=== PATIENT | female | born 1975 | race Hispanic/Latino ===

== ENCOUNTER 2016-10-18 15:38 | Emergency (ER) | payer BC ==
[~2016-10-18] VITALS: Ht 165.1 cm; Wt 50.3 kg
[~2016-10-18 15:38] MED LIST: AMBIEN10 MG PO; ENDOCET 5-3251 EACH PO; MOTRIN800 MG PO; Mylicon,Mylanta Gas, PO; NORMODYNE,TRAN200 MG PO; Procardia XL,Adalat PO
[2016-10-18 16:10] LABS: HEMATOCRIT 33.6 % (36.0-46.0); MCH 31.7 PG (29.0-34.0); MCHC 33.6 G/DL (30.0-36.0); MCV 94.1 FL (83-99); MEAN PLAT.VOLUME 10.2 uM^3 (9.5-12.4); PLATELET COUNT 303 K/uL (156-360); RBC DIS.WIDTH-CV 11.8 % (11.8-14.6); RBC DIS.WIDTH-SD 39.2 % (39-53); RED BLOOD COUNT 3.57 M/uL (3.80-5.20); WHITE BLOOD COUNT 5.6 K/uL (4.1-10.2)
[2016-10-18] MEDS ORDERED: LABETALOL HCL200 MG PO (16:24)
[2016-10-18 16:31] LABS: TROP-I INTERPRETATION NEGATIVE; TROPONIN-I < 0.01 ng/mL (0.0-0.30)
[2016-10-18 16:47] LABS: CHLORIDE 107 mEq/L (99-109); POTASSIUM 4.2 mEq/L (3.7-5.4); SODIUM 143 mEq/L (136-147)
[2016-10-18 16:48] LABS: GLUCOSE 89 mg/dL (70-99)
[2016-10-18 16:52] LABS: ANION GAP 9 MEQ/L (2-14); GFR ESTIMATE (CALCULATED) > 59 mL/min/
[2016-10-18 16:53] LABS: UREA NITROGEN (BUN) 19 mg/dL (9-23)
[2016-10-18 17:08] LABS: QUANTITATIVE HCG < 4.0 MIU/ML
[2016-10-18 18:42] LABS: TROP-I INTERPRETATION NEGATIVE; TROPONIN-I < 0.01 ng/mL (0.0-0.30)
[2016-10-18] MEDS ORDERED: NAPROXEN500 MG PO (19:14)
[2016-10-18 19:55] VITALS: BP 113/71
== END 2016-10-18 19:56 | disposition home or self-care (01) ==
LOC: EME 15:38
PROVIDERS: Physician Assistant Medical
DX: R07.9 Chest pain, unspecified (principal); M79.602 Pain in left arm
CPT/HCPCS: 71020; 80048; 84484; 84702; 85027; 93005; 99281; 99284

== ENCOUNTER 2016-12-13 09:03 | Emergency (ER) | payer BC ==
[~2016-12-13] VITALS: Ht 165.1 cm; Wt 52.7 kg
[~2016-12-13 09:03] MED LIST changes: +LABETALOL HCL200 MG PO; +NAPROXEN500 MG PO
[2016-12-13 09:25] LABS: MCH 31.4 PG (29.0-34.0); MCHC 32.6 G/DL (30.0-36.0); MCV 96.3 FL (83-99); MEAN PLAT.VOLUME 10.2 uM^3 (9.5-12.4); PLATELET COUNT 293 K/uL (156-360); RBC DIS.WIDTH-CV 11.7 % (11.8-14.6); RBC DIS.WIDTH-SD 41.1 % (39-53); RED BLOOD COUNT 3.53 M/uL (3.80-5.20)
[2016-12-13 09:42] LABS: CHLORIDE 109 mEq/L (99-109); POTASSIUM 3.9 mEq/L (3.7-5.4)
[2016-12-13 09:43] LABS: SODIUM 141 mEq/L (136-147)
[2016-12-13 09:44] LABS: GLUCOSE 100 mg/dL (70-99)
[2016-12-13 09:46] LABS: ANION GAP 8 MEQ/L (2-14)
[2016-12-13 09:48] LABS: GFR ESTIMATE (CALCULATED) > 59 mL/min/
[2016-12-13 09:49] LABS: UREA NITROGEN (BUN) 14 mg/dL (9-23)
[2016-12-13 09:56] LABS: QUANTITATIVE HCG < 4.0 MIU/ML
[2016-12-13 11:56] LABS: ADD MIUA? YES; BILIRUBIN NEGATIVE; BLOOD LARGE; COLOR YELLOW ((YELLOW)); GLUCOSE (STRIP) NEGATIVE; KETONES NEGATIVE; LEUKOCYTES NEGATIVE; NITRITE NEGATIVE; PROTEIN (STRIP) 30; SPECIFIC GRAVITY 1.016 (1.000-1.030); UROBILINOGEN 0.2 MG/DL (0.2-1.0)
[2016-12-13 12:14] LABS: BACTERIA RARE /HPF; EPITHELIAL CELLS 1+ /HPF; MUCUS TRACE /LPF; RED BLOOD CELLS TNTC /HPF (0-5); UCUL ADDED? NO; WHITE BLOOD CELLS NONE SEEN /HPF (0-5)
[2016-12-13] MEDS ORDERED: ZOFRAN ODT4 MG PO (15:36)
[2016-12-13] MEDS ORDERED: FLOMAX0.4 MG PO (15:36)
[2016-12-13] MEDS ORDERED: PERCOCET 5/31 TABLET PO (15:36)
[2016-12-13 15:52] VITALS: BP 122/91
[2016-12-14] MEDS ORDERED: TORADOL10 MG PO ×2 (04:53→15:41)
[2016-12-14] MEDS ORDERED: FLOMAX0.4 MG PO (15:40)
[2016-12-14] MEDS ORDERED: LABETALOL HCL200 MG PO (15:41)
[2016-12-14] MEDS ORDERED: PERCOCET 5/31 TABLET PO (15:42)
[2016-12-14] MEDS ORDERED: ZOFRAN ODT4 MG PO (15:43)
== END 2016-12-13 15:53 | disposition home or self-care (01) ==
LOC: EME 09:03
DX: N20.2 Calculus of kidney with calculus of ureter (principal); I10 Essential (primary) hypertension
CPT/HCPCS: 74176; 80048; 81003; 84702; 85027; 99281; 99284

== ENCOUNTER 2016-12-14 01:34 | Emergency (ER) | payer BC ==
[~2016-12-14] VITALS: Ht 165.1 cm; Wt 53.3 kg
[~2016-12-14 01:34] MED LIST changes: +FLOMAX0.4 MG PO; +PERCOCET 5/31 TABLET PO; +ZOFRAN ODT4 MG PO
[2016-12-14 02:12] LABS: EOSINOPHIL (%) 2.5 % (0-5); EOSINOPHIL COUNT 0.2 K/uL (0-0.3); HEMATOCRIT 32.5 % (36.0-46.0); IMMATURE GRANULOCYTE (%) 0.4 % (0.0-0.7); INSTRUMENT ABS NEUTROPHIL CT 4.2 K/uL; MCH 31.1 PG (29.0-34.0); MCHC 32.6 G/DL (30.0-36.0); MCV 95.3 FL (83-99); MEAN PLAT.VOLUME 10.2 uM^3 (9.5-12.4); MONOCYTE (%) 5.6 % (3-12); MONOCYTE COUNT 0.4 K/uL (0-0.8); NEUTROPHIL (%) 53.2 % (45-76); NEUTROPHIL COUNT 4.2 K/uL (1.8-6.4); PLATELET COUNT 298 K/uL (156-360); RBC DIS.WIDTH-CV 11.6 % (11.8-14.6); RBC DIS.WIDTH-SD 40.3 % (39-53); RED BLOOD COUNT 3.41 M/uL (3.80-5.20)
[2016-12-14 02:13] LABS: WHITE BLOOD COUNT 7.9 K/uL (4.1-10.2)
[2016-12-14 02:19] LABS: CHLORIDE 110 mEq/L (99-109); POTASSIUM 3.6 mEq/L (3.7-5.4); SODIUM 142 mEq/L (136-147)
[2016-12-14 02:21] LABS: GLUCOSE 106 mg/dL (70-99)
[2016-12-14 02:22] LABS: ANION GAP 8 MEQ/L (2-14)
[2016-12-14 02:25] LABS: GFR ESTIMATE (CALCULATED) 58 mL/min/
[2016-12-14 02:26] LABS: UREA NITROGEN (BUN) 19 mg/dL (9-23)
[2016-12-14] MEDS ORDERED: TORADOL10 MG PO ×2 (04:53→15:41)
[2016-12-14 05:01] VITALS: BP 120/75
[2016-12-14] MEDS ORDERED: FLOMAX0.4 MG PO (15:40)
[2016-12-14] MEDS ORDERED: LABETALOL HCL200 MG PO (15:41)
[2016-12-14] MEDS ORDERED: PERCOCET 5/31 TABLET PO (15:42)
[2016-12-14] MEDS ORDERED: ZOFRAN ODT4 MG PO (15:43)
== END 2016-12-14 05:12 | disposition hospice, inpatient (51) ==
LOC: EME 01:34
PROVIDERS: Personal Emergency Response Attendant
DX: N20.0 Calculus of kidney (principal); I10 Essential (primary) hypertension
CPT/HCPCS: 80048; 81003; 85025; 99281; 99285; J1885; J2405; J3010; J7030

== ENCOUNTER 2016-12-15 09:43 | Day surgery (SDC) | payer BC ==
[~2016-12-15] VITALS: Ht 165.1 cm; Wt 49.9 kg
[~2016-12-15 09:43] MED LIST changes: +TORADOL10 MG PO
[2016-12-15 10:12] VITALS: BP 132/75
[2016-12-15 13:28] VITALS: BP 148/90
[2016-12-15 14:40] VITALS: BP 152/73
== END 2016-12-15 14:43 | disposition home or self-care (01) ==
LOC: SDC 09:43
PROC: 0T768DZ Dilation of Right Ureter with Intraluminal Device, Via Natural or Artificial Opening Endoscopic (ICD-10-PCS; principal; 2016-12-15)
DX: N13.2 Hydronephrosis with renal and ureteral calculous obstruction (principal); I10 Essential (primary) hypertension; Z80.3 Family history of malignant neoplasm of breast
CPT/HCPCS: C1758; C1876; J0690; J1100; J2250; J2405; J3010; J7050